=== PATIENT | male | born 1945 | race Caucasian/White ===

== ENCOUNTER 2020-02-26 11:39 | Emergency (ER) | payer MEDICARE, BC ==
[2020-02-26 12:07] VITALS: BP 165/76
[2020-02-26] MEDS ORDERED: KETOROLAC TROMETHAMINE 60 MG/2 ML SDV IM ONE (13:27)
[2020-02-26] MEDS ORDERED: DEXAMETHASONE SOD PHOS INJ 10 MG/1 ML VIAL IM ONE (13:27)
[2020-02-26] MEDS ORDERED: DIAZEPAM 5 MG TABLET PO ONE (13:28)
--- NOTE | 2020-02-26 13:28 | ER Document Report ---
ED General Pain - General Chief Complaint: Low Back Pain Stated Complaint: MUSCLE/LOWER BACK SPASMS Time Seen by Provider: 02/26/20 13:19 Primary Care Provider: SHERIDAN SCHROEDER MD [Primary Care Provider] - Follow up as needed Mode of Arrival: Wheelchair Information source: Patient Notes: Patient is a 74-year-old male comes emergency room with a 3-day onset of muscle spasms in the lower back. Patient states this is happened several times throughout the years with the last being several months ago. States that usually goes away in 2 days. Normally happens when he goes twists or moves wrong and then he can ice it down and take [id number] medications and usually has no other problems however this time it is not going away and patient states the pain is gotten worse. He denies any radiation of pain down either leg or to the buttocks. He denies having any loss of feeling in his lower extremities he states once he gets erect he can walk pretty much without pain but is when he sits or twist that the going to spasm. He denies any loss of urine or stool. He denies any known traumatic events at this occasion. He woke up with it 3 days ago hurting like this. TRAVEL OUTSIDE OF THE [place] IN LAST 30 DAYS: No - HPI Onset: Other - 3 days ago Onset/Duration: Sudden, Persistent Quality of pain: Cramping, Sharp Severity: Moderate Pain Level: 3 Context: Chronic problem, Other - With acute exacerbation Typical of prior episodes of painful crisis: Yes Associated symptoms: Muscle aches Exacerbated by: Movement Relieved by: Sitting Similar symptoms previously: Yes Recently seen / treated by doctor: No - Related Data Allergies/Adverse Reactions: No Known Allergies Allergy (Verified 02/26/20 13:18) Home Medications: see list on chart Past Medical History - General Information source: Patient - Social History Smoking Status: Never Smoker Chew tobacco use (# tins/day): No Frequency of alcohol use: Social Drug Abuse: None Lives with: Spouse/Significant other Family History: Reviewed & Not Pertinent Patient has homicidal ideation: No - Past Medical History Cardiac Medical History: Reports: Hx Coronary Artery Disease - stents x3, Hx Hypercholesterolemia, Hx Hypertension Denies: Hx Heart Attack Pulmonary Medical History: Reports: Hx Asthma - child Denies: Hx Bronchitis, Hx COPD, Hx Pneumonia Neurological Medical History: Denies: Hx Cerebrovascular Accident, Hx Seizures Endocrine Medical History: Reports: Hx Diabetes Mellitus Type 2 GI Medical History: Reports: Hx Gastroesophageal Reflux Disease Musculoskeletal Medical History: Denies Hx Arthritis Past Surgical History: Reports: Hx Cardiac Catheterization - stents - Immunizations Immunizations up to date: Yes Hx Diphtheria, Pertussis, Tetanus Vaccination: Yes Hx Pneumococcal Vaccination: 08/09/14 Review of Systems - Review of Systems Constitutional: No symptoms reported EENT: No symptoms reported Cardiovascular: No symptoms reported Respiratory: No symptoms reported Gastrointestinal: No symptoms reported Genitourinary: No symptoms reported Male Genitourinary: No symptoms reported Musculoskeletal: Back pain, Muscle pain Skin: No symptoms reported Hematologic/Lymphatic: No symptoms reported Neurological/Psychological: No symptoms reported -: Yes All other systems reviewed and negative Physical Exam - Vital signs Vitals: Temp Pulse Resp BP Pulse Ox 98.4 F 61 20 165/76 H 99 02/26/20 12:05 02/26/20 12:05 02/26/20 12:05 02/26/20 12:05 02/26/20 12:05 Interpretation: Hypertensive - Notes Notes: PHYSICAL EXAMINATION: GENERAL: Patient is a well-nourished well-developed 74-year-old male who is in no apparent distress on physical exam but does appear very much uncomfortable. HEAD: Atraumatic, normocephalic. EYES: Pupils equal round and reactive to light, extraocular movements intact, sclera anicteric, conjunctiva are normal. ENT: Nares patent, oropharynx clear without exudates. Moist mucous membranes. NECK: Normal range of motion, supple without lymphadenopathy LUNGS: Breath sounds clear to auscultation bilaterally and equal. No wheezes rales or rhonchi. HEART: Regular rate and rhythm without murmurs ABDOMEN: Soft, nontender, nondistended abdomen. No guarding, no rebound. No masses appreciated. Musculoskeletal: Examination patient's her concern is his low back. Patient has some mild tenderness in the L4-L5 area however most the patient is discomfort is lateral to that into the upper gluteus shalini area and muscle tissues in the soft tissue area to the left. There are spasms are felt in the area. Very tender to palpate. After palpation patient went into further spasms on that side. Palpation of the sciatic notch and posterior left calf and thigh did not show any tenderness. Straight leg raises were only mildly positive because of the discomfort. DTRs were normal on the left side. Vascular exam is also normal. There was no sign of saddle paresthesia. Patient had good sensation from the ankles to the groins and from the outside of the ankles to the hips. He also had no signs of cauda equina syndrome. Once he got erect patient could walk without much discomfort or pain and he did heal the toe without a problem. NEUROLOGICAL: Normal speech, normal gait. Normal sensory, motor exams PSYCH: Normal mood, normal affect. SKIN: Warm, Dry, normal turgor, no rashes or lesions noted. Course - Re-evaluation Re-evalutation: 02/27/20 00:46 Patient got very good relief with the Toradol and steroids as well as the Valium. - Vital Signs Vital signs: Temp Pulse Resp BP Pulse Ox 98.4 F 61 20 165/76 H 99 02/26/20 12:05 02/26/20 12:05 02/26/20 12:05 02/26/20 12:05 02/26/20 12:05 Discharge - Discharge Clinical Impression: Spasm of muscle of lower back Condition: Stable Disposition: HOME, SELF-CARE Instructions: Ice Packs ([facility]), Low Back Pain ([facility]), Muscle Strain ([facility]) Additional Instructions: Home and medications prescribed. Remember that the Valium will cause you to be sleepy so do not go out and drive or work at heights while taking the medication. Also be careful when going from sitting to standing the you do not get dizzy or off balance and fall. The Valium is a great muscle relaxer which I think will benefit you more than anything at this time. I highly recommend using either ice or moist heat or alternating the 2. Light stretching starting tomorrow. I highly recommend that you follow-up with your primary care in the next 24 to 48 hours for reevaluation. You can always return to ER for reevaluation. Should you have any loss of urine or stool uncontrollably you need to return to ER for reevaluation sooner. Prescriptions: Methylprednisolone [Medrol Dosepack (4 mg/Tab) 21 Tab/Dosepak] 4 mg PO ASDIR PRN #21 tab.ds.pk PRN Reason: Diazepam [Valium 5 mg Tablet] 5 mg PO TIDP PRN #15 tablet PRN Reason: Forms: Elevated Blood Pressure Referrals: SHERIDAN SCHROEDER MD [Primary Care Provider] - Follow up as needed
--- NOTE | 2020-02-26 14:24 | RADIOLOGY REPORT (SQ) ---
EXAM DESCRIPTION: L SPINE WHOLE IMAGES COMPLETED DATE/TIME: 02/26/2020 2:05 pm REASON FOR STUDY: low back pain withspasms COMPARISON: None. NUMBER OF VIEWS: Five views including obliques. TECHNIQUE: AP, lateral, oblique, and sacral radiographic images acquired of the lumbar spine. LIMITATIONS: None. FINDINGS: MINERALIZATION: Normal. SEGMENTATION: Normal. No transitional anatomy. ALIGNMENT: Normal. VERTEBRAE: Maintained height. No fracture or worrisome bone lesion. DISCS: Disc space narrowing at L5-S1. POSTERIOR ELEMENTS: Pedicles and facets are intact. No pars defect or posterior arch defects. HARDWARE: None in the spine. PARASPINAL SOFT TISSUES: Normal. PELVIS: Intact as visualized. No fractures or worrisome bone lesions. SI joints intact. OTHER: No other significant finding. IMPRESSION: Disc space narrowing at L5-S1. No other significant findings. TECHNICAL DOCUMENTATION: JOB ID: [id number] 2010 [employer]- All Rights Reserved Reading location - IP/workstation name: [email or web address]
== END 2020-02-26 14:40 | disposition home or self-care (01) ==
LOC: ER 11:39
DX: M62.830 Muscle spasm of back (principal); I25.10 Atherosclerotic heart disease of native coronary artery without angina pectoris; I10 Essential (primary) hypertension; E11.9 Type 2 diabetes mellitus without complications; Z95.5 Presence of coronary angioplasty implant and graft
CPT/HCPCS: 99283; 96372; 72110; A9270; J1885; J1100